=== PATIENT | female | born 1995 | race Caucasian/White ===

== ENCOUNTER 2020-07-30 05:34 | Inpatient (IN) ==
[2020-07-30] MEDS ORDERED: Famotidine 20 MG/2 ML VIAL IVP ONE (05:46)
[2020-07-30] MEDS ORDERED: Naloxone 0.4 MG/ML INJ IVP PRN (05:46)
[2020-07-30] MEDS ORDERED: Metoclopramide 10 MG/2 ML VIAL IVP ONE (05:46)
[2020-07-30] MEDS ORDERED: Ringers Solution, Lactated 1,000 ML ONE ×3 (06:18→08:29)
[2020-07-30] MEDS ORDERED: Ringers Solution, Lactated 1,000 ML IVC ONE (06:19)
[2020-07-30 06:31] LABS: Basophils % 0.4 %; Eosinophils # 0.1 K/mcL (0.0-0.6); Eosinophils % 0.9 %; Hematocrit 38.8 % (35.3-44.9); Hemoglobin 12.5 g/dL (11.5-15.4); Immature Granulocytes % 1.2 % (0-4); Lymphocytes # 1.5 K/mcL (0.6-4.6); Lymphocytes % 20.4 %; Mean Corpuscular HGB Conc 32.2 g/dL (31.6-35.5); Mean Corpuscular Hemoglobin 31.3 pg (28.0-33.3); Mean Corpuscular Volume 97.2 fL (83.0-100.0); Monocytes # 0.8 K/mcL (0.0-1.3); Monocytes % 9.9 %; Neutrophils # 5.1 K/mcL (1.6-8.9); Platelet Count 163 K/mcL (140-400); Red Blood Count 3.99 M/mcL (3.82-4.97); Red Cell Distribution Width 13.5 % (11.5-14.5); Segmented Neutrophils % 67.2 %; White Blood Count 7.6 K/mcL (4.3-11.1)
[2020-07-30] MEDS ORDERED: *HR* FentaNYL (PF) 100 MCG/2 ML VIAL ONE (07:08)
[2020-07-30] MEDS ORDERED: Ondansetron 4 MG/2 ML VIAL ONE (07:08)
[2020-07-30] MEDS ORDERED: *HR* Morphine Sulfate/PF 10 MG/10 ML AMPUL ONE (07:08)
[2020-07-30] MEDS ORDERED: *HR* Midazolam HCl 2 MG/2 ML VIAL ONE (07:08)
[2020-07-30] MEDS ORDERED: Ketorolac 30 MG/ML VIAL ONE (07:10)
[2020-07-30] MEDS ORDERED: EPHEDrine 50 MG/ML VIAL ONE (07:10)
[2020-07-30] MEDS ORDERED: CeFAZolin 2,000 MG/50 ML BAG IVPB ONE (07:13)
[2020-07-30] MEDS ORDERED: Oxytocin 20 units/ LR 1000 mL 20 UNIT/1,000 ML BAG IVC ONE ×2 (07:39→11:01)
[2020-07-30] MEDS ORDERED: Bupivacaine-MPF 0.25% 10 ML VIAL ONE (07:50)
[2020-07-30] MEDS ORDERED: Ropivacaine/PF 0.2% 20 ML VIAL ONE (07:50)
[2020-07-30] MEDS ORDERED: *HR* Oxytocin 10 UNIT/ML VIAL IM ONE ×2 (08:12→08:29)
[2020-07-30 08:43] LABS: Amphetamine Screen,Urine Negative ng/mL (Cutoff=1000); Barbiturate Screen,Urine Negative ng/mL (Cutoff=200); Benzodiazepines Screen,Urine Negative ng/mL (Cutoff=200); Cannabinoid Screen,Urine Negative ng/mL (Cutoff = 50); Cocaine Screen,Urine Negative ng/mL (Cutoff= 300); Opiate Screen,Urine Negative ng/mL (Cutoff=300); Phencyclidine Screen,Urine Negative ng/mL (Cutoff=25)
[2020-07-30] MEDS ORDERED: Ondansetron 4 MG/2 ML VIAL IVP PRN (11:38)
[2020-07-30] MEDS ORDERED: Oxytocin 20 units/ LR 1000 mL 20 UNIT/1,000 ML BAG IVC SCH (11:38)
[2020-07-30] MEDS ORDERED: Metoclopramide 10 MG/2 ML VIAL IVP PRN (11:38)
[2020-07-30] MEDS ORDERED: Simethicone 80 MG TAB.CHEW PO PRN (11:38)
[2020-07-30] MEDS: Prenatal Vit/FA 1 EACH TABLET PO SCH (14:28)
[2020-07-30] MEDS: metroNIDAZOLE 500 MG TABLET PO SCH ×3 (14:30→20:15)
[2020-07-30] MEDS: Acetaminophen 325 MG TABLET PO SCH ×2 (14:35→20:15)
[2020-07-30] MEDS: Ibuprofen 600 MG TABLET PO SCH ×2 (14:36→20:14)
[2020-07-30] MEDS: CeFAZolin 2,000 MG/50 ML BAG IVPB SCH ×2 (16:02→23:51)
[2020-07-31] MEDS: *HR* OxyCODONE/APAP 5/325 TABLET PO PRN ×2 (00:24→14:46)
[2020-07-31] MEDS: Ibuprofen 600 MG TABLET PO SCH ×2 (04:43→10:57)
[2020-07-31] MEDS: Acetaminophen 325 MG TABLET PO SCH ×3 (04:43→14:46)
[2020-07-31 05:16] LABS: Eosinophils % 0.5 %; Immature Granulocytes % 0.6 % (0-4); Mean Platelet Volume 11.7 fL (9.4-12.4); Red Cell Distribution Width 13.4 % (11.5-14.5)
[2020-07-31 05:18] LABS: Basophils % 0.4 %; Hematocrit 28.6 % (35.3-44.9); Hemoglobin 9.3 g/dL (11.5-15.4); Immature Platelets 8.3 % (1.1-6.1); Lymphocytes # 1.9 K/mcL (0.6-4.6); Lymphocytes % 23.4 %; Mean Corpuscular HGB Conc 32.5 g/dL (31.6-35.5); Mean Corpuscular Hemoglobin 31.6 pg (28.0-33.3); Mean Corpuscular Volume 97.3 fL (83.0-100.0); Monocytes # 0.8 K/mcL (0.0-1.3); Monocytes % 9.4 %; Neutrophils # 5.5 K/mcL (1.6-8.9); Platelet Count 143 K/mcL (140-400); Red Blood Count 2.94 M/mcL (3.82-4.97); Segmented Neutrophils % 65.7 %; White Blood Count 8.3 K/mcL (4.3-11.1)
[2020-07-31] MEDS: Prenatal Vit/FA 1 EACH TABLET PO SCH (08:15)
[2020-07-31] MEDS: CeFAZolin 2,000 MG/50 ML BAG IVPB SCH (08:15)
[2020-07-31] MEDS: metroNIDAZOLE 500 MG TABLET PO SCH ×2 (08:16→14:46)
[2020-07-31 09:22] VITALS: BP 117/65
== END 2020-07-31 16:30 | disposition home or self-care (01) | DRG 785 ==
LOC: 1NENULAB 05:34 → 1NENUOBS 11:21
PROVIDERS: ADMIT Obstetrics & Gynecology; ATTEND Obstetrics & Gynecology